=== PATIENT | female | born 1955 | race Asian ===

== ENCOUNTER 2016-08-16 08:56 | Day surgery (SDC) | payer BC ==
[2016-08-16 09:55] VITALS: BMI 23.7
[2016-08-16] MEDS ORDERED: PROPOFOL 20 ML ONE ×2 (10:01)
[2016-08-16 11:01] VITALS: TEMP 97.8
[2016-08-16 11:38] VITALS: BP 109/62; PULSE 63
--- NOTE | 2016-08-17 12:37 | PATH ---
Surgical Pathology Report Patient Name: ROLO MUNOZ [facility]. Rec. #: [id number] /Age/Gender: 1955 (Age: 60) / F Account: [id number] Location: [facility]-ENDOSCOPY Taken: 08/16/2016 Received: 08/16/2016 Reported: 08/17/2016 Physicians: Terell Berkowitz M.D. Specimen(s) Received BX RECTAL POLYP Clinical History Colon screening Rectal polyps Final Diagnosis RECTUM, POLYPS, BIOPSY AND POLYPECTOMY: HYPERPLASTIC POLYPS. Electronically Signed Eliot Thurman M.D. Gross Description Received in formalin, labeled "biopsy polyps rectum" are 3 mohan, irregular portions of soft tissue ranging from 0.2-0.7 cm in greatest dimension. The specimens are submitted in toto in one cassette. 08/16/201608/16/2016
== END 2016-08-16 11:40 | disposition home or self-care (01) ==
LOC: JASU-ENDO 08:56
PROVIDERS: ATTEND Internal Medicine Gastroenterology
PROC: 0DBP8ZX Excision of Rectum, Via Natural or Artificial Opening Endoscopic, Diagnostic (ICD-10-PCS; principal; 2016-08-16 10:00)
DX: Z12.11 Encounter for screening for malignant neoplasm of colon (principal); K62.1 Rectal polyp
CPT/HCPCS: 88305-TC

== ENCOUNTER 2020-11-24 15:18 | Emergency (ER) | payer OTHER ==
[2020-11-25 11:08] LABS: SARS-CoV-2 NAA Not Detected (Not Detected)
== END 2020-11-24 17:07 | disposition home or self-care (01) ==
LOC: JVIRT 15:18
DX: Z11.52 Encounter for screening for COVID-19 (principal)
CPT/HCPCS: C9803; Q3014-GT; U0003; U0005

== ENCOUNTER 2020-12-05 10:23 | Emergency (ER) | payer OTHER | END 2020-12-05 11:45 | disposition home or self-care (01) | LOC: JVIRT 10:23 | DX: Z20.822 Contact with and (suspected) exposure to COVID-19 (principal) | CPT/HCPCS: C9803; Q3014-GT; U0003; U0005 ==

== ENCOUNTER → 2022-09-13 | Day surgery (SDC) | payer OTHER | END | disposition home or self-care (01) | LOC: JMAMMOTONE 13:16 | PROVIDERS: ATTEND Internal Medicine Endocrinology, Diabetes & Metabolism | PROC: 0H9T3ZX Drainage of Right Breast, Percutaneous Approach, Diagnostic (ICD-10-PCS; principal; 2022-09-13) | DX: N60.11 Diffuse cystic mastopathy of right breast (principal) | CPT/HCPCS: 19083; 87899; 88305-TC; A4648 ==